=== PATIENT | female | born 1995 | race Hispanic/Latino ===

== ENCOUNTER → 2016-11-27 | Outpatient (CLI) | payer OTHER ==
[~2016-11-27] MED LIST: CEPH500C PO; FERR-74 PO; HYDR-3714 PO; HYDR-3812 PO; IBUP-1773 PO; ONDA4TAB11 PO
--- NOTE | 2016-11-27 13:11 | Diagnostic Imaging Report ---
INDICATION: Dating. TECHNIQUE: Multiple real-time grayscale images were obtained over the gravid uterus. COMPARISON: None during this . FINDINGS: The placenta is anterior. There is no placenta previa. Single intrauterine is seen with heart rate of 140 beats per minute. position is cephalic. The anatomy evaluation demonstrates no ventriculomegaly. Three-vessel cord is demonstrated. No hydronephrosis in the kidneys. The bladder appear unremarkable. Only portions of the spine are visualized with no definite abnormality in the upper and mid spine seen. The lower spine in particular is not well seen due to position and advanced age. Also, the cord insertion is not well seen. The four-chamber view is less than optimal due to angulation with no definitive abnormality. AUNDREA is 10 cm. Biometrical measurements are as follows: Biparietal 8.9 cm, age 36 weeks 1 days. Head circumference 32. cm, age 36 weeks 2 days. Abdominal circumference 31.7 cm, age 35 weeks 5 days. Femur length 7.1 cm, age 36 weeks 1 days. Sonographic estimate age: 36 weeks 1 days. Sonographic estimated date of delivery: 12/24/2016. Estimated Weight: 2795 gm (+/- 408 gm). LMP percentile: N/A%. heart rate: 140 beats per minute. number: 1 of 1. IMPRESSION: anatomic evaluation is incomplete due to position and advanced age. Unfortunately, no earlier ultrasound exams were performed in this for better anatomy evaluation and more accurate dating. Dictated by: Dictated on workstation # [id number]
== END ==
LOC: RAD 10:01
PROVIDERS: ATTEND Family Medicine
DX: Z36 Encounter for antenatal screening of mother (principal); Z3A.36 36 weeks gestation of pregnancy
CPT/HCPCS: 76805

== ENCOUNTER 2016-12-08 19:22 | Outpatient (CLI) | payer SELFPAY ==
[~2016-12-08] VITALS: Ht 172.7 cm; Wt 69.2 kg
[2016-12-08 19:36] VITALS: BP 114/69
[2016-12-08] MEDS ORDERED: FERR-84 PO (20:20)
[2016-12-08] MEDS ORDERED: PREN-142 PO (20:20)
--- NOTE | 2016-12-09 13:00 | Physician Query-Final Dx ---
LILIANA GUIDRY 12/09/16 1300: Clinic Account Progress/Dx Physician Query: Please give diagnosis Date of Service December 08, 2016 at 19:22 RANJAN OSWALD MD 12/10/16 1140: Clinic Account Progress/Dx DIAGNOSIS: Diagnosis Term IUP Leaking fluid- amnio testing negative LILIANA GUIDRY December 09, 2016 13:00 RANJAN OSWALD MD December 10, 2016 11:40
== END 2016-12-08 20:32 | disposition home or self-care (01) ==
LOC: WSo 19:22 → LDRP 19:22 → WSo 20:32
PROVIDERS: ATTEND Family Medicine
DX: Z34.93 Encounter for supervision of normal pregnancy, unspecified, third trimester (principal)
CPT/HCPCS: 99213

== ENCOUNTER 2016-12-30 18:47 | Inpatient (IN) | payer OTHER ==
[2016-12-30] VITALS (8 sets, daily range): BP systolic 113–132; BP diastolic 58–81
[~2016-12-30] VITALS: Ht 172.7 cm; Wt 70.1 kg
[~2016-12-30 18:47] MED LIST changes: +FERR-84 PO; +PREN-142 PO
[2016-12-30] MEDS ORDERED: LACTATED RINGERS 1,000 ML IV ONE (19:14)
[2016-12-30] MEDS ORDERED: LACTATED RINGERS 1,000 ML IV SCH (20:02)
[2016-12-30] MEDS ORDERED: D5 LR IV SOLUTION 1,000 ML IV ONE (20:07)
[2016-12-30 20:08] LABS: BASOPHILS % (AUTO) 0 % (0-10); EOSINOPHILS # (AUTO) 0.3 10^3/uL (0.0-0.3); EOSINOPHILS % (AUTO) 3 % (0-10); LYMPHOCYTES # (AUTO) 3.1 X 10^3 (1.0-4.0); LYMPHOCYTES % (AUTO) 25 % (12-44); MEAN CORPUSCULAR HEMOGLOBIN 26 PG (25-34); MEAN CORPUSCULAR HGB CONC 32 G/DL (32-36); MEAN CORPUSCULAR VOLUME 82 FL (80-99); MEAN PLATELET VOLUME 12.7 FL (7.4-10.4); MONOCYTES # (AUTO) 0.8 X 10^3 (0.0-1.0); MONOCYTES % (AUTO) 7 % (0-12); NEUTROPHILS # (AUTO) 7.9 X 10^3 (1.8-7.8); NEUTROPHILS % (AUTO) 65 % (42-75); PLATELET COUNT 217 10^3/uL (130-400); RED BLOOD COUNT 3.75 10^6/uL (4.35-5.85); RED CELL DISTRIBUTION WIDTH 15.6 % (10.0-14.5); WHITE BLOOD COUNT 12.1 10^3/uL (4.3-11.0)
[2016-12-30] MEDS ORDERED: MISOPROSTOL 100 MCG (CYTOTEC) TAB PV PRN (20:15)
[2016-12-30] MEDS ORDERED: MINERAL OIL CONCENTRATE 99.9% 15 ML UDC TOP PRN (20:15)
[2016-12-30] MEDS ORDERED: TERBUTALINE INJ 1 MG/ML (BRETHINE) AMP SC PRN (20:15)
[2016-12-30] MEDS: D5 LR IV SOLUTION 1,000 ML IV SCH (20:25)
[2016-12-30] MEDS ORDERED: CATHETER FLUSH 10 ML SYR IV SCH (22:00)
[2016-12-31] VITALS (39 sets, daily range): BP systolic 100–157; BP diastolic 52–91
[2016-12-31] MEDS ORDERED: fentaNYL INJECTION 100 MCG/2 ML AMP IVP PRN (04:00)
[2016-12-31] MEDS: D5 LR IV SOLUTION 1,000 ML IV SCH (04:21)
[2016-12-31] MEDS ORDERED: OXYTOCIN/NORMAL SALINE 500 ML IV SCH (07:53)
--- NOTE | 2016-12-31 08:41 | History & Physical-OB ---
OB - Chief Complaint & HPI Date/Time Date of Admission: Date of Admission: Dec 30, 2016 at 6:47 pm Time Seen by Provider: 08:36 Chief Complaint/History OB-Reason for Admission/Chief: Induction of Labor Hx : 3 Hx Para: 1011 Expected Date of Delivery: Dec 24, 2016 Gestational Age in Weeks: 41 Gestational Age in Days: 0 Indication for induction: post dates Other reason for admission: 20 yo at 41w0d by6 36 week US with late care and anemia, admitted for IOL due to suspected post-dates. History of Labs A+, antibody neg, RI, HIV/HepB/RPR NR, GC/chlamydia neg. Glucola normal. GBS neg. Allergies and Home Medications Allergies Coded Allergies: No Known Drug Allergies (Unverified , 12/26/14) Home Medications Vit No.124/Iron/FA 1 Each Tablet, 1 EACH PO DAILY, (Reported) OB - History Hx of Present Care: Yes (limited, initiated at 36 weeks with unknown LMP) Ultrasounds: Other (Normal limited US at 36 weeks with incomplete views due to age and position) Obstetrical Complications: None Medical Complications: None Obstetrical History Hx : 3 Hx Para: 1 Hx # Term Pregnancies: 1 Hx # Pregnancies: 0 Number of Living Children: 1 Hx Total # of Abortions (Spona: 1 Hx Multiple Gestation: No Hx Ectopic : No Hx Stillbirth: No Hx Complication: No Hx Induced Hypertens: No Hx Maternal Gestational Diabet: No Hx Hemorrhage: No Delivery History Hx Dystocia: No Hx Forceps Assisted Delivery: No Hx Vacuum Extraction Assisted: No Hx Placenta Abnormality: No Hx Distress: No Hx Large For Gestational Age I: No Hx Small for Gestational Age I: No Hx Section: No Hx Vaginal Delivery Post C-Sec: No Hx Blood Disorders: No Adverse Rxn to Tranfusion: No Patient Past Medical History denies PMH/PSH Social History/Family History HIV/AIDS: No Recent Infectious Disease Expo: No Alcohol Use: Denies Use Recreational Drug Use: No Smoking Cessation: Never smoker Immunizations Hepatitis A: Yes Hepatitis B: Yes Tetanus Booster (TDap): Less than 5yrs Date of Influenza Vaccine: Jun 26, 2015 Rubella: immune RPR/VDRL: Negative GBS Status: Negative HBsAG: Negative OB - Admission Exam Physical Exam Date Seen by Provider: Dec 31, 2016 Time Seen by Provider: 08:40 Vitals: Vital Signs 12/31/16 04:07 Temp 97.6 Pulse 71 Resp 18 B/P (MAP) 120/72 O2 Delivery Room Air HEENT: NCAT Abdomen: Gravid Extremities: Normal Cervical Dilatation: 5cm Effacement: 75% Station: -1 Membranes: Intact Heart Rate: 120's Accelerations: Accelerations Present Decelerations: No Decelerations Short Term Variability: Present Detention Variability: Average (6-25) Contractions on Admission: None Scoring Tool (Modified) Score: 5 Labs Laboratory Tests Test 12/30/16 19:20 Range/Units White Blood Count 12.1 H 4.3-11.0 10^3/uL Red Blood Count 3.75 L 4.35-5.85 10^6/uL Hemoglobin 9.7 L 11.5-16.0 G/DL Hematocrit 31 L 35-52 % Mean Corpuscular Volume 82 80-99 FL Mean Corpuscular Hemoglobin 26 25-34 PG Mean Corpuscular Hemoglobin Concent 32 32-36 G/DL Red Cell Distribution Width 15.6 H 10.0-14.5 % Platelet Count 217 130-400 10^3/uL Mean Platelet Volume 12.7 H 7.4-10.4 FL Neutrophils (%) (Auto) 65 42-75 % Lymphocytes (%) (Auto) 25 12-44 % Monocytes (%) (Auto) 7 0-12 % Eosinophils (%) (Auto) 3 0-10 % Basophils (%) (Auto) 0 0-10 % Neutrophils # (Auto) 7.9 H 1.8-7.8 X 10^3 Lymphocytes # (Auto) 3.1 1.0-4.0 X 10^3 Monocytes # (Auto) 0.8 0.0-1.0 X 10^3 Eosinophils # (Auto) 0.3 0.0-0.3 10^3/uL Basophils # (Auto) 0.0 0.0-0.1 10^3/uL OB - Assessment/Plan/Diagnosis Assessment Assessment: induction of labor Plan Plan: Induction Induction Method: per Misoprostol Protocol RANJAN OSWALD MD Dec 31, 2016 8:41 am
[2016-12-31] MEDS ORDERED: SUFENTA 0.6MCG/ML BUPIVA 0.125 100 ML ONE (08:53)
[2016-12-31] MEDS ORDERED: BUPIVACAINE 0.25% 30 ML (SENSORCAINE) VIAL ONE (09:12)
[2016-12-31] MEDS ORDERED: fentaNYL INJECTION 100 MCG/2 ML AMP ONE (09:12)
[2016-12-31] MEDS ORDERED: LIDOCAINE PF 2% 10 ML (XYLOCAINE) AMP ONE (09:12)
[2016-12-31] MEDS ORDERED: LACTATED RINGERS 1,000 ML IV ONE (09:35)
[2016-12-31] MEDS ORDERED: NALOXONE 0.4 MG/ML 1 ML (NARCAN) VIAL IV PRN (09:45)
[2016-12-31] MEDS ORDERED: EPIDURAL (SUFENTA 0.6MCG/ML BUPIVA 0.125%) 100 ML BAG EPI SCH (09:45)
[2016-12-31] MEDS ORDERED: diphenhydrAMINE 50 MG/ML INJ (BENADRYL) IV PRN (09:45)
[2016-12-31] MEDS ORDERED: CATHETER FLUSH 10 ML SYR IV PRN (09:45)
[2016-12-31] MEDS: ONDANSETRON 4 MG/2 ML (SDV) Z0FRAN IV PRN ×2 (10:07→13:54)
[2016-12-31] MEDS ORDERED: LIDOCAINE/EPI 1%-1:200,000 (XYLOCAINE) 30 ML VIAL ONE (11:39)
[2016-12-31] MEDS ORDERED: MISOPROSTOL 200 MCG (CYTOTEC) TABLET ONE (13:00)
[2016-12-31] MEDS: OXYTOCIN/NORMAL SALINE 500 ML IV SCH ×2 (13:02→13:35)
[2016-12-31] MEDS ORDERED: METHYLERGONOVINE 0.2 MG/ML (METHERGINE) AMP ONE (13:07)
--- NOTE | 2016-12-31 13:28 | OB Labor & Delivery Record ---
Vag Delivery Note Vag Delivery Note Date of Delivery: 12/31/16 Preoperative Diagnosis: Elham Mace is a 21 /Para 3 / 1, Gestational Age (wks)41with 0 days Postoperative Diagnosis: Same Surgeon: RANJAN OSWALD Chronic Manager: Rosey Fragoso, MS3 Anesthesia: Epidural Delivery Type: Spontaneous vaginal Findings: [] Viable male infant, apgars 8/9, weight 7#10 Lacerations: periurethral abrasions Intact placenta with 3 vessel cord. No nuchal cord, body cord or shoulder dystocia Cytotec 800 mcg placed for hemorrhage prophylaxis Estimated Blood Loss: 350 ml Complications: mild continued bleeding which responded well to fundal pressure but intermittently recurred, so cytotec 800 mcg rectally given and with continued intermittent uterine relaxation, 0.2 mg methergine given with resolution of bleeding. Condition: Stable Description of Procedure: The patient is a G3 now P2012 who presented at 41w0d with poor dating for IOL due to postdates. She was admitted and informed consent was obtained. Her labor course was unremarkable. She progressed to complete dilatation and began to push. She was then set up for delivery. The 's head was delivered atraumatically in the ANNELISE position. The shoulders and remainder of the infant's body were then delivered without difficulty. Upon delivery, the cried immediately and was placed on maternal abdomen. After the cord stopped pulsing, the cord was doubly clamped and cut and the was handed off to the pediatric staff. An intact placenta with 3-vessel cord delivered via Navin and there was found to be moderate bleeding.~ Vigorous fundal massage was performed and the fundus was found to be firm (see complications above for further detail) IV oxytocin was given. Examination of the vagina and perineum revealed periurethral abrasions not requiring repair. Mom and baby were both in stable condition in the labor suite. Vitals - Labs Vital Signs - I&O Vital Signs Date Time Temp Pulse Resp B/P (MAP) Pulse Ox O2 Delivery O2 Flow Rate FiO2 12/31/16 09:55 69 18 131/61 Room Air 12/31/16 09:50 67 18 127/76 Room Air 12/31/16 09:45 78 18 129/77 Room Air 12/31/16 09:40 98.3 75 18 130/72 Room Air 12/31/16 09:38 73 18 118/72 Room Air 12/31/16 09:31 93 18 132/86 Room Air 12/31/16 09:28 73 18 135/83 Room Air 12/31/16 09:25 85 18 133/76 Room Air 12/31/16 09:18 71 18 132/80 Room Air 12/31/16 08:57 75 18 137/75 Room Air 12/31/16 07:46 97.9 78 18 145/65 Room Air 12/31/16 07:40 69 18 118/69 Room Air 12/31/16 04:07 97.6 71 18 120/72 Room Air 12/31/16 00:45 98.6 72 18 115/69 Room Air 12/31/16 00:05 71 18 100/52 Room Air 12/30/16 23:02 75 18 113/72 Room Air 12/30/16 22:02 80 18 123/63 Room Air 12/30/16 21:35 90 18 117/70 Room Air 12/30/16 21:07 88 18 120/76 Room Air 12/30/16 20:37 98.4 88 18 123/58 Room Air 12/30/16 20:05 92 18 119/71 Room Air 12/30/16 19:35 91 18 122/81 Room Air 12/30/16 19:03 99.0 92 18 132/77 Room Air I & O 12/31/16 07:00 Intake Total 3000 ml Balance 3000 ml Labs Laboratory Tests 12/30/16 19:20: White Blood Count 12.1H, Red Blood Count 3.75L, Hemoglobin 9.7L, Hematocrit 31L , Mean Corpuscular Volume 82, Mean Corpuscular Hemoglobin 26, Mean Corpuscular Hemoglobin Concent 32, Red Cell Distribution Width 15.6H, Platelet Count 217, Mean Platelet Volume 12.7H, Neutrophils (%) (Auto) 65, Lymphocytes (%) (Auto) 25 , Monocytes (%) (Auto) 7, Eosinophils (%) (Auto) 3, Basophils (%) (Auto) 0, Neutrophils # (Auto) 7.9H, Lymphocytes # (Auto) 3.1, Monocytes # (Auto) 0.8, Eosinophils # (Auto) 0.3, Basophils # (Auto) 0.0 RANJAN OSWALD MD Dec 31, 2016 1:28 pm
[2016-12-31] MEDS ORDERED: WITCH HAZEL(TUCKS) 40 EA JAR TOP PRN (15:00)
[2016-12-31] MEDS ORDERED: BENZOCAINE/MENTHOL (DERMOPLAST) 56 ML CAN TP PRN (15:00)
[2016-12-31] MEDS: IBUPROFEN 600 MG (MOTRIN) TAB PO SCH ×2 (15:11→23:59)
[2016-12-31] MEDS ORDERED: CATHETER FLUSH 10 ML SYR IV SCH (22:00)
[2017-01-01] VITALS: BP 104/68
[2017-01-01 04:40] VITALS: BP 108/65
[2017-01-01] MEDS: IBUPROFEN 600 MG (MOTRIN) TAB PO SCH ×2 (06:35→13:03)
[2017-01-01] MEDS ORDERED: PRENATAL VITAMIN 1 EA TAB PO SCH (07:00)
[2017-01-01 07:20] LABS: BASOPHILS % (AUTO) 0 % (0-10); EOSINOPHILS # (AUTO) 0.1 10^3/uL (0.0-0.3); EOSINOPHILS % (AUTO) 1 % (0-10); LYMPHOCYTES # (AUTO) 3.7 X 10^3 (1.0-4.0); LYMPHOCYTES % (AUTO) 26 % (12-44); MEAN CORPUSCULAR HEMOGLOBIN 25 PG (25-34); MEAN CORPUSCULAR HGB CONC 31 G/DL (32-36); MEAN CORPUSCULAR VOLUME 81 FL (80-99); MEAN PLATELET VOLUME 11.8 FL (7.4-10.4); MONOCYTES # (AUTO) 1.2 X 10^3 (0.0-1.0); MONOCYTES % (AUTO) 8 % (0-12); NEUTROPHILS # (AUTO) 9.1 X 10^3 (1.8-7.8); NEUTROPHILS % (AUTO) 65 % (42-75); PLATELET COUNT 205 10^3/uL (130-400); RED BLOOD COUNT 3.87 10^6/uL (4.35-5.85); RED CELL DISTRIBUTION WIDTH 15.4 % (10.0-14.5); WHITE BLOOD COUNT 14.1 10^3/uL (4.3-11.0)
[2017-01-01 08:00] VITALS: BP 105/67
[2017-01-01 08:10] LABS: BAND NEUTROPHILS 0 %; BASOPHILS % (MANUAL) 0 %; EOSINOPHILS % (MANUAL) 1 %; LYMPHOCYTES % (MANUAL) 31 %; NEUTROPHILS % (MANUAL) 61 %
--- NOTE | 2017-01-01 08:14 | Progress Note (SOAP) ---
ROSEY CHATMAN MED STUDENT 01/01/17 0814: Subjective Subjective/Events-last exam Patient presents today in no acute distress. Patient states that she has had a throbbing headache since delivery and rates the pain at a 4/10. She also states she has low back pain that is a 5/10 localized to the area where her epidural was placed. Patient states that last night she experienced dizziness whenever she would stand up to use the restroom. The dizziness has improved this morning. Patient states that she has had difficulty with but will continue to try. When the does not work, she switches to formula. Patient states that she has had mild vaginal bleeding but she is not concerned. Patient states she had swelling in her feet last night but it has gone away this morning. Patient denies shortness of breath and chest pain. Review of Systems Date Seen by Provider: Jan 01, 2017 Time Seen by Provider: 07:45 General: Fatigue HEENT: Head Aches Objective Exam Last Set of Vital Signs Vital Signs Date Time Temp Pulse Resp B/P (MAP) Pulse Ox O2 Delivery O2 Flow Rate FiO2 01/01/17 04:40 98.0 72 18 108/65 98 Room Air Capillary Refill : I&O Intake and Output 01/01/17 00:00 Intake Total 5000 ml Balance 5000 ml Intake Oral 1000 ml IV Total 4000 ml # Voids 6 General: Alert, Oriented X3, Cooperative, No Acute Distress Lungs: Clear to Auscultation, Normal Air Movement Heart: Regular Rate, Normal S1, Normal S2, No Murmurs Abdomen: Normal Bowel Sounds Extremities: No Edema Results/Procedures Lab Laboratory Tests 01/01/17 07:06: White Blood Count 14.1H, Red Blood Count 3.87L, Hemoglobin 9.7L, Hematocrit 31L , Mean Corpuscular Volume 81, Mean Corpuscular Hemoglobin 25, Mean Corpuscular Hemoglobin Concent 31L, Red Cell Distribution Width 15.4H, Platelet Count 205, Mean Platelet Volume 11.8H, Neutrophils (%) (Auto) 65, Lymphocytes (%) (Auto) 26 , Monocytes (%) (Auto) 8, Eosinophils (%) (Auto) 1, Basophils (%) (Auto) 0, Neutrophils # (Auto) 9.1H, Lymphocytes # (Auto) 3.7, Monocytes # (Auto) 1.2H, Eosinophils # (Auto) 0.1, Basophils # (Auto) 0.0 Assessment/Plan Assessment/Plan Admission Dx 1. headache 2. mild anemia 3. leukocytosis with an increase in absolute neutrophil count Plan 1. headache -ibuprofen PRN -monitor and consider oral caffeine if AMAYA is due to PDPH 2. mild anemia -monitor, consider starting oral iron sulfate therapy 3. leukocytosis with an increase in absolute neutrophil count Diagnosis/Problems: Clinical Quality Measures DVT/VTE Risk/Contraindication: Risk Factor Score Per Nursin RFS Level Per Nursing on Admit: 1=Low/No VTE PPX RANJAN OSWALD MD 01/01/17 0916: Supervisory-Addendum Brief Supervisory Addendum Patient seen and examined with Rosey Chatman, MS3, agree with documentation unless otherwise noted. Leukocytosis likely normal labor and delivery related, headache improved at time of my exam. ROSEY CHATMAN MED STUDENT Jan 01, 2017 08:14 RANJAN OSWALD MD Jan 01, 2017 09:16
[2017-01-01] MEDS ORDERED: FERR-74 PO (08:41)
[2017-01-01] MEDS ORDERED: IBUP-1773 PO (08:41)
--- NOTE | 2017-01-01 08:42 | Discharge Instructions ---
Discharge Inst-Women's Serv Depart Medications New, Converted or Re-Newed RX: Transmitted to Pharmacy New Medications: Ferrous Sulfate (Ferrous Sulfate) 325 Mg Tablet 325 MG PO DAILY, #30 TAB 0 Refills Ibuprofen (Ibuprofen) 600 Mg Tablet 600 MG PO Q6H PRN for PAIN-MILD TO MODERATE, #60 TAB 0 Refills Continued Medications: Vit No.124/Iron/FA ( Vitamin Tablet) 1 Each Tablet 1 EACH PO DAILY, TAB Follow Up/Instructions Goal/Follow Up: Follow up with Dr. Doyle in 6 weeks for visit Activity Activity: Activity as Tolerated (avoid strenuous activity x 6 weeks) Driving Instructions: You May Drive NO SMOKING: NO SMOKING Nothing Inside Vagina: No Douching, No [place], No Tampons Diet Discharge Diet: No Restrictions Symptoms to Report to : Swelling Increased, Bleeding Excessive, Fever Over 101 Degrees F, Pain/Pressure in Chest, Vaginal Bleeding Increase, Cramps in Feet or Legs, Vaginal Discharge Foul, Dizziness/Fainting, Shortness of Breath For Any Problems or Questions: Contact Your Physician RANJAN DOYLE MD Jan 01, 2017 8:42 am
--- NOTE | 2017-01-01 09:18 | Anesthesia-Regional Post-Op ---
Regional Patient Condition Mental Status: Alert, Oriented x3 Circulation: Same as Pre-Op Headache: Absent Sensation: Full Recovery Motor Block: Absent Post Op Complications Complications None Follow Up Care/Instructions Patient Instructions None needed. Anesthesia/Patient Condition Patient is doing well, no complaints, stable vital signs, no apparent adverse anesthesia problems. No complications reported per nursing. CATRACHO HIGUERA CRNA Jan 01, 2017 09:18
[2017-01-01 12:50] VITALS: BP 109/60
[2017-01-01 16:20] VITALS: BP 109/60
== END 2017-01-01 16:20 | disposition home or self-care (01) | DRG 774 ==
LOC: LDRP 18:47
PROVIDERS: ADMIT Family Medicine; ATTEND Family Medicine
PROC: 10E0XZZ Delivery of Products of Conception, External Approach (ICD-10-PCS; principal; 2016-12-31)
DX: O48.0 Post-term pregnancy (principal); O72.1 Other immediate postpartum hemorrhage; O75.89 Other specified complications of labor and delivery; R51 Headache; O99.02 Anemia complicating childbirth; D64.9 Anemia, unspecified; Z37.0 Single live birth; Z3A.41 41 weeks gestation of pregnancy
CPT/HCPCS: 36415; 85007; 85025; 85027; 86850; 86900; 86901

== ENCOUNTER 2018-01-05 20:19 | Emergency (ER) | payer SELFPAY ==
[~2018-01-05] VITALS: Ht 172.7 cm; Wt 59.0 kg
[~2018-01-05 20:19] MED LIST changes: +ACHD5005 PO; -FERR-74 PO; +FERR325T18 PO; -HYDR-3812 PO
[2018-01-05] MEDS ORDERED: NS IV 1000 ML 1,000 ML IV ONE (21:08)
--- NOTE | 2018-01-05 21:22 | ED GU-Female ---
General Chief Complaint: -Female Stated Complaint: POSS MISCARRIAGE Nursing Triage Note: PT PRESENTS TO ER WITH COMLPAINT OF POSSIBLE MISCARRIAGE. STATES SHE HAS BEEN HAVING VAGINAL BLEEDING FOR 2 WEEKS. STATES LAST TWO DAYS IT HAS INCREASED. STATES SHE PASSED SOMETHING THAT COULD HAVE BEEN A FETUS. Nursing Sepsis Screen: No Definite Risk Source: patient Exam Limitations: no limitations History of Present Illness Date Seen by Provider: Jan 05, 2018 Time Seen by Provider: 20:50 Initial Comments PT ARRIVES VIA POV STATES SHE THINKS SHE IS HAVING A MISCARRIAGE, BUT HAS NOT DONE A HOME TEST PT STATES SHE WAS ON DEPO-PROVERA 2 YEARS AGO, SINCE THEN SHE HAS NOT HAD REGULAR PERIODS, ONLY SPOTTING OFF AND ON 2 WEEKS AGO SHE BEGAN SPOTTING/LIGHT PERIOD--USING 1-2 TAMPONS A DAY. LAST BLEEDING BEFORE THAT WAS APPROXIMATELY 6 WEEKS AGO. 2 DAYS AGO, BLEEDING INCREASED AND WAS MORE LIKE A NORMAL PERIOD BLEEDING INCREASED TODAY AND HAS BEEN PASSING CLOTS, AND HAS USED AROUND 12-14 TAMPONS TODAY BEGAN HAVING LOWER BACK ACHING AND CRAMPING YESTERDAY AND THEN BEGAN HAVING LOWER ABDOMINAL CRAMPING 4-5 HOURS AGO. NO NAUSEA/VOMITING HAS BEEN A LITTLE DIZZY OFF AND ON TODAY NO FEVER NO PROBLEMS URINATING. 2104--PT PASSED WHAT APPEARS TO BE PRODUCTS OF CONCEPTION. SPECIMEN SENT TO LAB. Allergies and Home Medications Allergies Coded Allergies: No Known Drug Allergies (Unverified , 12/26/14) Home Medications Ferrous Sulfate 325 Mg Tablet, 325 MG PO DAILY Prescribed by: RANJAN OSWALD on 01/01/17 0841 Ibuprofen 600 Mg Tablet, 600 MG PO Q6H PRN for PAIN-MILD TO MODERATE Prescribed by: RANJAN OSWALD on 01/01/17 0841 Vit No.124/Iron/FA 1 Each Tablet, 1 EACH PO DAILY, (Reported) Review of Systems Constitutional: see HPI, dizziness Respiratory: no symptoms reported Cardiovascular: no symptoms reported Gastrointestinal: see HPI Genitourinary: see HPI Musculoskeletal: see HPI Skin: no symptoms reported Psychiatric/Neurological: No Symptoms Reported Endocrine: No Symptoms Reported Hematologic/Lymphatic: No Symptoms Reported Past Xfenwik-Ourntc-Xikaxw Hx Patient Social History Alcohol Use: Occasionally Uses Recreational Drug Use: No Smoking Status: Never a Smoker Recent Foreign Travel: No Contact w/Someone Who Travel: No Recent Infectious Disease Expo: No Recent Hopitalizations: No Immunizations Up To Date Tetanus Booster (TDap): Less than 5yrs PED Vaccines UTD: Yes Date of Influenza Vaccine: Jun 26, 2015 Seasonal Allergies Seasonal Allergies: No Past Medical History Surgeries: No Respiratory: No Cardiac: No Neurological: No Hx : 3 Hx Para: 2 Hx Total # of Abortions (Sp): 1 Reproductive Disorders: No Female Reproductive Disorders: Menstrual Problems (IRREGULAR PERIODS) HIV/AIDS: No Genitourinary: No Gastrointestinal: No Musculoskeletal: No Endocrine: No HEENT: No Cancer: No Psychosocial: No Integumentary: No Blood Disorders: Yes (anemia) Adverse Reaction/Blood Tranf: No Family Medical History Patient reports no known family medical history. No Pertinent Family Hx Physical Exam Vital Signs Vital Signs - First Documented 01/05/18 20:38 Temp 97.4 Pulse 98 Resp 20 B/P (MAP) 119/87 (98) Pulse Ox 98 O2 Delivery Room Air Capillary Refill : Less Than 3 Seconds General Appearance: WD/WN, no apparent distress, thin HEENT: No pale conjunctivae (R), No pale conjunctivae (L) Neck: normal inspection Cardiovascular: regular rate, rhythm, no murmur Respiratory: normal breath sounds, no respiratory distress, no accessory muscle use Gastrointestinal: normal bowel sounds, soft, no organomegaly, no pulsatile mass , tenderness (MILD SUPRAPUBIC TENDERNESS) Back: normal inspection Extremities: normal inspection Neurologic/Psychiatric: privacy director II-XII nml as tested, no motor/sensory deficits, alert, normal mood/affect, oriented x 3 Skin: normal color, warm/dry Progress/Results/Core Measures Suspected Sepsis Recent Fever Within 48 Hours: No Infection Criteria Present: None New/Unexplained Altered Menta: No Sepsis Screen: No Definite Risk SIRS Temperature:97.4 Pulse: 98 Respiratory Rate: 20 Laboratory Tests 01/05/18 21:13: White Blood Count 12.2H Blood Pressure 119 /87 Mean: 98 Laboratory Tests 01/05/18 21:13: Creatinine 0.69, Platelet Count 287 Results/Orders Lab Results Laboratory Tests Test 01/05/18 21:13 Range/Units White Blood Count 12.2 H 4.3-11.0 10^3/uL Red Blood Count 4.07 L 4.35-5.85 10^6/uL Hemoglobin 10.6 L 11.5-16.0 G/DL Hematocrit 32 L 35-52 % Mean Corpuscular Volume 78 L 80-99 FL Mean Corpuscular Hemoglobin 26 25-34 PG Mean Corpuscular Hemoglobin Concent 33 32-36 G/DL Red Cell Distribution Width 16.5 H 10.0-14.5 % Platelet Count 287 130-400 10^3/uL Mean Platelet Volume 11.3 H 7.4-10.4 FL Neutrophils (%) (Auto) 63 42-75 % Lymphocytes (%) (Auto) 27 12-44 % Monocytes (%) (Auto) 9 0-12 % Eosinophils (%) (Auto) 1 0-10 % Basophils (%) (Auto) 0 0-10 % Neutrophils # (Auto) 7.8 1.8-7.8 X 10^3 Lymphocytes # (Auto) 3.3 1.0-4.0 X 10^3 Monocytes # (Auto) 1.0 0.0-1.0 X 10^3 Eosinophils # (Auto) 0.1 0.0-0.3 10^3/uL Basophils # (Auto) 0.0 0.0-0.1 10^3/uL Sodium Level 137 135-145 MMOL/L Potassium Level 3.6 3.6-5.0 MMOL/L Chloride Level 106 98-107 MMOL/L Carbon Dioxide Level 18 L 21-32 MMOL/L Anion Gap 13 5-14 MMOL/L Blood Urea Nitrogen 4 L 7-18 MG/DL Creatinine 0.69 0.60-1.30 MG/DL Estimat Glomerular Filtration Rate > 60 BUN/Creatinine Ratio 6 Glucose Level 93 70-105 MG/DL Calcium Level 9.6 8.5-10.1 MG/DL My Orders Orders - ELIANE ESCOBAR DO Urine Bedside (01/05/18 20:57) Basic Metabolic Panel (01/05/18 21:08) Cbc With Automated Diff (01/05/18 21:08) Hcg,Quantitative (01/05/18 21:08) Saline Lock/Iv-Start (01/05/18 21:08) Saline Lock/Iv-Start (01/05/18 21:08) Ns Iv 1000 Ml (Sodium Chloride 0.9%) (01/05/18 21:08) Rx-Hydrocodone/Apap 5-325 Mg (Rx-Vicodin (01/05/18 22:00) Medications Given in ED Current Medications Medications Dose Ordered Sig/Eden Route Start Time Stop Time Status Last Admin Dose Admin Sodium Chloride 1,000 ml @ 0 mls/hr Q0M ONCE IV 01/05/18 21:08 01/05/18 21:09 DC 01/05/18 21:40 1,000 MLS/HR Vital Signs/I&O 01/05/18 20:38 Temp 97.4 Pulse 98 Resp 20 B/P (MAP) 119/87 (98) Pulse Ox 98 O2 Delivery Room Air Capillary Refill : Less Than 3 Seconds Blood Pressure Mean: 98 Progress Note : Progress Note CRAMPING RESOLVED AND DIZZINESS GONE AT DISMISSAL PT GIVEN A PAD IN ER AND SHE DID NOT SATURATE IT DURING ER STAY Departure Communication (Admissions) 1999--SPOKE WITH DR. OSWALD, WILL SEE PT IN OFFICE THIS WEEK. THEY WILL CALL PT IN AM TO SCHEDULE APPOINTMENT Impression Primary Impression: Miscarriage Disposition: HOME, SELF-CARE Condition: Improved Departure-Patient Inst. Referrals: RANJAN OSWALD MD (PCP/Family) Primary Care Physician Patient Instructions: Dealing With Miscarriage, Miscarriage (DC) Add. Discharge Instructions: LOTS OF CLEAR LIQUIDS--WATER, GATORADE TYLENOL AND MOTRIN NEEDED FOR PAIN KEEP AN ACCURATE PAD COUNT--RETURN TO ER IF SOAKING MORE THAN 1 MAXI PAD AN HOUR FOLLOW UP WITH [facility] THIS WEEK FOR FURTHER CARE--THEY WILL CALL YOU IN THE MORNING TO ARRANGE A FOLLOW UP APPOINTMENT All discharge instructions reviewed with patient and/or family. Voiced understanding. ELIANE ESCOBAR DO Jan 05, 2018 21:22
[2018-01-05 21:25] LABS: BASOPHILS % (AUTO) 0 % (0-10); EOSINOPHILS # (AUTO) 0.1 10^3/uL (0.0-0.3); EOSINOPHILS % (AUTO) 1 % (0-10); HEMATOCRIT 32 % (35-52); HEMOGLOBIN 10.6 G/DL (11.5-16.0); LYMPHOCYTES # (AUTO) 3.3 X 10^3 (1.0-4.0); LYMPHOCYTES % (AUTO) 27 % (12-44); MEAN CORPUSCULAR HEMOGLOBIN 26 PG (25-34); MEAN CORPUSCULAR HGB CONC 33 G/DL (32-36); MEAN CORPUSCULAR VOLUME 78 FL (80-99); MEAN PLATELET VOLUME 11.3 FL (7.4-10.4); MONOCYTES % (AUTO) 9 % (0-12); NEUTROPHILS # (AUTO) 7.8 X 10^3 (1.8-7.8); NEUTROPHILS % (AUTO) 63 % (42-75); PLATELET COUNT 287 10^3/uL (130-400); RED BLOOD COUNT 4.07 10^6/uL (4.35-5.85); RED CELL DISTRIBUTION WIDTH 16.5 % (10.0-14.5); WHITE BLOOD COUNT 12.2 10^3/uL (4.3-11.0)
[2018-01-05 21:43] LABS: BUN/CREATININE RATIO 6; CALCIUM 9.6 MG/DL (8.5-10.1); CARBON DIOXIDE 18 MMOL/L (21-32); CHLORIDE 106 MMOL/L (98-107); CREATININE SERUM 0.69 MG/DL (0.60-1.30); GFR ESTIMATED > 60; GLUCOSE 93 MG/DL (70-105); POTASSIUM 3.6 MMOL/L (3.6-5.0); SODIUM 137 MMOL/L (135-145)
[2018-01-05] MEDS ORDERED: RX-HYDROCODONE/APAP 5/325 MG #4 TAB PK PO PRN (22:00)
[2018-01-05 22:22] VITALS: BP 119/87
== END 2018-01-05 22:22 | disposition home or self-care (01) ==
LOC: EDUNIT# 20:19 → ER 20:20
DX: O03.9 Complete or unspecified spontaneous abortion without complication (principal); O99.019 Anemia complicating pregnancy, unspecified trimester; Z3A.00 Weeks of gestation of pregnancy not specified
CPT/HCPCS: 36415; 80048; 84702; 85025; 96360

== ENCOUNTER → 2018-01-27 | Outpatient (CLI) | payer OTHER ==
--- NOTE | 2018-01-27 17:27 | Diagnostic Imaging Report ---
PROCEDURE: US PELVIC (NON OB) TECHNIQUE: Multiple real-time grayscale images were obtained over the pelvis in various projections transabdominally. INDICATION: Miscarriage two weeks ago, now with continued bleeding and pain. FINDINGS: The uterus measures 7.6 x 5.1 x 3.5 cm. No myometrial mass is seen. The endometrium is 4 mm in thickness. No definite endometrial vascularity is visualized. The right ovary measures 3.1 x 3.2 x 2.2 cm, and the left ovary measures 2.1 x 1.3 x 1.9 cm. There is blood flow to both ovaries. No adnexal mass or free fluid is seen. IMPRESSION: Unremarkable pelvic ultrasound. No definite findings to suggest retained products of conception are identified. Dictated by: Dictated on workstation # [id number]
== END ==
LOC: RAD 11:55
PROVIDERS: ATTEND Family Medicine
DX: O03.9 Complete or unspecified spontaneous abortion without complication (principal)
CPT/HCPCS: 76856

== ENCOUNTER 2019-11-12 06:54 | Outpatient (CLI) | payer SELFPAY ==
--- NOTE | 2019-11-12 07:00 | NUR ---
DOMINIQUE KOTHARI presented to unit via ambulation from ED, with c/o CONTRACTIONS. DOMINIQUE KOTHARI weighed, gowned, voided, and to bed. EFHM and TOCO applied, VS taken. DOMINIQUE KOTHARI oriented to bed controls, call light, TV, heat, and A/C controls.
[2019-11-12] MEDS ORDERED: D5 LR IV SOLUTION 1,000 ML IV ONE (07:34)
[2019-11-12 07:35] VITALS: BP 129/81
[2019-11-12] MEDS ORDERED: BETAMETHASONE ACE/NA PHOS 6 MG/ML (CELESTONE SOLUSPAN) ONE (07:49)
[2019-11-12] MEDS ORDERED: WATER (STERILE) FOR INJECTION 20 ML ONE (07:49)
[2019-11-12] MEDS ORDERED: AMPICILLIN FOR IV USE 2,000 MG VIAL ONE (07:49)
[2019-11-12] MEDS ORDERED: AMPICILLIN FOR IV USE 2,000 MG in WATER (STERILE) FOR INJECTION 14.8 ML IV SCH (07:52)
[2019-11-12] MEDS ORDERED: D5 LR IV SOLUTION 1,000 ML IV SCH (07:52)
[2019-11-12] MEDS ORDERED: TERBUTALINE INJ 1 MG/ML (BRETHINE) AMP ONE (07:57)
[2019-11-12] MEDS ORDERED: MINERAL OIL CONCENTRATE 99.9% 15 ML UDC TOP PRN (08:00)
[2019-11-12 08:05] VITALS: BP 116/79
[2019-11-12] MEDS ORDERED: MAGNESIUM 4 GM/100 ML IVPB 100 ML IV ONE (08:10)
[2019-11-12] MEDS ORDERED: MAGNESIUM SULFATE DRIP 500 ML IV ONE (08:10)
--- NOTE | 2019-11-12 08:10 | NUR ---
Dr. Dhillon consulting [facility]. Will accept pt at this time.
[2019-11-12 08:12] LABS: BASOPHILS % (AUTO) 0 % (0-10); EOSINOPHILS % (AUTO) 0 % (0-10); HEMATOCRIT 30 % (35-52); HEMOGLOBIN 9.4 G/DL (11.5-16.0); LYMPHOCYTES # (AUTO) 2.6 X 10^3 (1.0-4.0); LYMPHOCYTES % (AUTO) 27 % (12-44); MEAN CORPUSCULAR HEMOGLOBIN 26 PG (25-34); MEAN CORPUSCULAR HGB CONC 32 G/DL (32-36); MEAN CORPUSCULAR VOLUME 81 FL (80-99); MEAN PLATELET VOLUME 11.6 FL (7.4-10.4); MONOCYTES # (AUTO) 0.8 X 10^3 (0.0-1.0); MONOCYTES % (AUTO) 9 % (0-12); NEUTROPHILS # (AUTO) 6.1 X 10^3 (1.8-7.8); NEUTROPHILS % (AUTO) 64 % (42-75); PLATELET COUNT 211 10^3/uL (130-400); RED CELL DISTRIBUTION WIDTH 15.1 % (10.0-14.5); WHITE BLOOD COUNT 9.4 10^3/uL (4.3-11.0)
--- NOTE | 2019-11-12 08:25 | NUR ---
Consent obtained for transfer
--- NOTE | 2019-11-12 08:31 | Discharge Inst-Women's Service ---
Discharge Inst-Women's Serv Depart Medication/Instructions Instructions Patient being transferred to [facility]'s services under the care of Dr. Carpenter. MARCELA MERCADO MD Nov 12, 2019 08:31
[2019-11-12 08:35] VITALS: BP 120/68
--- NOTE | 2019-11-12 08:37 | Short Stay Summary ---
HPI History of Present Illness: 23-year-old 3 term 2 female currently with gestational age unknown. She is in the third trimester based upon short history she does have. She does report in [place] she went to a women's clinic at 21 weeks or 26 weeks gestation and this was done on August 26, 2019. Based upon this she could be anywhere from 32-37 weeks gestation. She had no care and is planning on giving baby up for adoption. Source: patient Date seen by provider: Nov 12, 2019 Time Seen by Provider: 08:00 Attending Physician Marcela Mercado MD PCP Nancy Doyle MD Consult Date of Admission Home Medications Home Medications Reviewed patient Home Medication Reconciliation performed by pharmacy medication reconciliations wind turbine technician and/or nursing. Patients Allergies have been reviewed. Allergies Coded Allergies: No Known Drug Allergies (Unverified , 12/26/14) [id number] Hx Patient Social History Number of Children: 2 Recent Foreign Travel: No Contact w/other who traveled: No Recent Hopitalizations: No Immunizations Up To Date Tetanus Booster (TDap): Less than 5yrs Date of Influenza Vaccine: Jun 26, 2015 Past Medical History denies PMH/PSH Family Medical History Significant Family History: No Pertinent Family Hx Family History: Patient reports no known family medical history. Review of Systems ([facility]) Constitutional: see HPI Reviewed Test Results Reviewed Test Results Lab Laboratory Tests Test 11/12/19 07:50 Range/Units White Blood Count 9.4 4.3-11.0 10^3/uL Red Blood Count 3.64 L 4.35-5.85 10^6/uL Hemoglobin 9.4 L 11.5-16.0 G/DL Hematocrit 30 L 35-52 % Mean Corpuscular Volume 81 80-99 FL Mean Corpuscular Hemoglobin 26 25-34 PG Mean Corpuscular Hemoglobin Concent 32 32-36 G/DL Red Cell Distribution Width 15.1 H 10.0-14.5 % Platelet Count 211 130-400 10^3/uL Mean Platelet Volume 11.6 H 7.4-10.4 FL Neutrophils (%) (Auto) 64 42-75 % Lymphocytes (%) (Auto) 27 12-44 % Monocytes (%) (Auto) 9 0-12 % Eosinophils (%) (Auto) 0 0-10 % Basophils (%) (Auto) 0 0-10 % Neutrophils # (Auto) 6.1 1.8-7.8 X 10^3 Lymphocytes # (Auto) 2.6 1.0-4.0 X 10^3 Monocytes # (Auto) 0.8 0.0-1.0 X 10^3 Eosinophils # (Auto) 0.0 0.0-0.3 10^3/uL Basophils # (Auto) 0.0 0.0-0.1 10^3/uL Physical Exam-([facility]) Physical Exam Vital Signs Capillary Refill : General Appearance: no apparent distress Respiratory: lungs clear Cardiovascular: regular rate, rhythm Comments Cervix check she is 5 cm dilated and posterior. Short Stay Diagnosis Discharge Diagnosis-Short Stay Admission Diagnosis 1. Intrauterine in third trimester (32 weeks gestation to a 37 weeks gestation) 2. labor 3. GBS status unknown Final Discharge Diagnosis 1. Intrauterine in third trimester (32 weeks gestation to a 37 weeks gestation) 2. labor 3. GBS status unknown Conclusion Plan Transfer to women's services in [facility]. Was the Problem List Reviewed?: Yes Assessment/Plan Assessment/Plan Admission Dx 1. Intrauterine in third trimester (32 weeks gestation to a 37 weeks gestation) 2. labor 3. GBS status unknown Admission Status: Observation Reason for Inpatient Admission: Patient to be transferred to [facility] women's services Assessment & Plan 1. Intrauterine in third trimester (32 weeks gestation to a 37 weeks gestation) 2. labor -Patient to be transferred to [facility] under the care of Dr. Carpenter who was contacted at [phone]. -Patient has received betamethasone here at via [facility] -She has received 1 dose of IM terbutaline. -She will be initiated on 4 g loading of magnesium with 2 g/h in route to [facility] 3. GBS status unknown -Patient received ampicillin 2 g IV MARCELA MERCADO MD Nov 12, 2019 08:37
[2019-11-12] MEDS ORDERED: BETAMETHASONE ACE/NA PHOS 6 MG/ML (CELESTONE SOLUSPAN) IM SCH (09:00)
[2019-11-12 09:05] VITALS: BP 118/68
--- NOTE | 2019-11-12 09:12 | NUR ---
Report called to Maria Eugenia Hardin RN at [place] by Wilmer Braswell RN
[2019-11-12 09:20] VITALS: BP 115/64
--- NOTE | 2019-11-12 09:35 | NUR ---
Pt leaves unit via EMS cart accompanied by Wilmer Braswell RN and EMS staff for transport to [facility].
[2019-11-12] MEDS ORDERED: AMPICILLIN FOR IV USE 1,000 MG in WATER (STERILE) FOR INJECTION 7.4 ML IV SCH (12:00)
[2019-11-12] MEDS ORDERED: CATHETER FLUSH 10 ML SYR IV SCH (14:00)
== END 2019-11-12 09:35 | disposition short-term general hospital (02) ==
LOC: LDRP 06:54 → WSo 06:54
PROVIDERS: ATTEND Family Medicine
DX: O60.03 Preterm labor without delivery, third trimester (principal)
CPT/HCPCS: 36415; 85025; 86850; 86900; 86901; 96361; 96372; 96374; 96375; 99213